=== PATIENT | male | born 1950 | race Caucasian/White ===

== ENCOUNTER → 2018-11-25 | Outpatient (CLI) | payer OTHER ==
[~2018-11-25] MED LIST: OMNIPAQUE 350 MG/ML, 150 ML BOTTLE ONE
== END | disposition home or self-care (01) ==
LOC: CFH 14:35
PROVIDERS: ATTEND Urology
DX: N32.89 Other specified disorders of bladder (principal)
CPT/HCPCS: 74178; Q9967

== ENCOUNTER → 2018-12-22 | Outpatient (CLI) | payer OTHER ==
[~2018-12-22] MED LIST changes: +ACET-1600 PO; +ASPI325T17 PO; +B CO1TAB14 PO; +CHOL400T10 PO; +CRAN1CAP8 PO; +GARL10002 PO; +IBUP200C8 PO; +MULT-658 PO; -OMNIPAQUE 350 MG/ML, 150 ML BOTTLE ONE; +PHEN97.511 PO; +TAMS-11 PO
[2018-12-22 17:08] LABS: MICROSCOPIC INDICATED
== END | disposition home or self-care (01) ==
LOC: STAR 15:34
PROVIDERS: ATTEND Urology
DX: Z01.818 Encounter for other preprocedural examination (principal); N35.011 Post-traumatic bulbous urethral stricture
CPT/HCPCS: 81001; 87077; 87086; 87186; 93005

== ENCOUNTER 2018-12-28 10:02 | Day surgery (SDC) | payer OTHER ==
[~2018-12-28] VITALS: Ht 172.7 cm; Wt 68.2 kg
[2018-12-28] MEDS ORDERED: ACETAMINOPHEN 500 MG TABLET PO ONE (10:30)
[2018-12-28] MEDS ORDERED: ONDANSETRON ODT 8 MG PO ONE (10:30)
[2018-12-28] MEDS ORDERED: LACTATED RINGERS 1,000 ML IV SCH (10:38)
[2018-12-28 10:42] VITALS: BP 169/87
[2018-12-28] MEDS ORDERED: MIDAZOLAM 1 MG/ML, 2ML ONE (11:45)
[2018-12-28] MEDS ORDERED: FENTANYL PF 100 MCG/2ML ONE ×2 (11:46→13:05)
[2018-12-28] MEDS ORDERED: GENTAMICIN 160 MG in SODIUM CHLORIDE 0.9% 100 ML IV SCH (12:30)
[2018-12-28] MEDS ORDERED: KETOROLAC 30 MG/1 ML ONE (13:05)
[2018-12-28] MEDS ORDERED: OXYcodone 5 MG/5 ML ORAL.SOL UDC ONE (13:05)
[2018-12-28] MEDS: FENTANYL PF 100 MCG/2ML IV PRN ×2 (13:11→13:33)
[2018-12-28] MEDS: OXYcodone 5 MG/5 ML ORAL.SOL UDC PO PRN ×2 (13:12→13:14)
[2018-12-28] MEDS ORDERED: HYDROmorphone 2 MG/ML, 1ML IVPush PRN (13:30)
[2018-12-28] MEDS ORDERED: MEPERIDINE/PF 25MG/0.5ML IVPush PRN (13:30)
[2018-12-28] MEDS ORDERED: ONDANSETRON 2MG/ML, 2ML IV PRN (13:30)
[2018-12-28] MEDS ORDERED: KETOROLAC 30 MG/1 ML IV PRN (13:30)
[2018-12-28] MEDS ORDERED: PROMETHAZINE 25 MG/ML, 1ML IV PRN (13:30)
[2018-12-28] MEDS ORDERED: hydrALAzine 20 MG/ML, 1ML ONE (13:59)
[2018-12-28] MEDS ORDERED: OPIUM/BELLADONNA SUPP.RECT 16.2-60 MG PR ONE (14:00)
[2018-12-28] MEDS ORDERED: OPIUM/BELLADONNA SUPP.RECT 16.2-60 MG ONE (14:04)
[2018-12-28] MEDS ORDERED: hydrALAzine 20 MG/ML, 1ML IV ONE (14:30)
[2018-12-28] MEDS ORDERED: CEFAZOLIN 1,000 MG ONE (16:13)
[2018-12-28] MEDS ORDERED: PROPOFOL 10 MG/ML, 20ML ONE (16:13)
== END 2018-12-28 16:55 | disposition home or self-care (01) ==
LOC: OUT 10:02
PROVIDERS: ATTEND Urology
DX: N35.812 Other bulbous urethral stricture, male (principal); I10 Essential (primary) hypertension; Z88.1 Allergy status to other antibiotic agents; Z79.82 Long term (current) use of aspirin
CPT/HCPCS: 52276; J0360; J0690; J1885; J2250; J2704; J3010; J7120; Q0162